=== PATIENT | male | born 1965 | race Hispanic/Latino ===

== ENCOUNTER → 2023-08-04 | Outpatient (CLI) | payer OTHER ==
[2023-08-04 16:22] LABS: CREATININE 0.9 mg/dL (0.5-1.5); POTASSIUM 4.2 mmol/L (3.5-5.1)
== END | disposition home or self-care (01) ==
LOC: LAB 13:25
PROVIDERS: ATTEND Internal Medicine Cardiovascular Disease
DX: I10 Essential (primary) hypertension (principal); R07.89 Other chest pain
CPT/HCPCS: 36415; 80048

== ENCOUNTER → 2023-08-06 | Outpatient (CLI) | payer OTHER | END | disposition home or self-care (01) | LOC: RAH 13:12 | PROVIDERS: ATTEND Internal Medicine Cardiovascular Disease | DX: I10 Essential (primary) hypertension (principal); R07.89 Other chest pain; I25.810 Atherosclerosis of coronary artery bypass graft(s) without angina pectoris; Z98.890 Other specified postprocedural states | CPT/HCPCS: 71046 ==